=== PATIENT | female | born 1995 | race Caucasian/White ===

== ENCOUNTER → 2022-01-31 13:02 | Outpatient (BNVA) | payer MEDICAID, SELFPAY | PROVIDERS: Visit Provider Nurse Practitioner | DX: H93.90 Unspecified disorder of ear, unspecified ear (principal); J10.1 Influenza due to other identified influenza virus with other respiratory manifestations | CPT/HCPCS: 87400 ==

== ENCOUNTER → 2022-05-24 10:14 | Outpatient (BNVA) | payer MEDICAID, SELFPAY | PROVIDERS: Referring Provider Family Medicine; Visit Provider Student in an Organized Health Care Education/Training Program | DX: M67.432 Ganglion, left wrist (principal) | CPT/HCPCS: 73110 ==

== ENCOUNTER 2022-05-25 05:52 | Day surgery (SDC) | payer MEDICAID, SELFPAY ==
[2022-05-24 11:48] VITALS: BMI 31.6
[2022-05-25] VITALS (9 sets, daily range): BP systolic 106–137; BP diastolic 75–95; PULSE 68–100; RESP 16–20; TEMP 36.1–36.6; O2SAT 95–100
[2022-05-25] MEDS: sodium chloride 0.9% 1,000 ML 30 ML IV (06:27)
[2022-05-25 06:34] LABS: OR HCG Qualitative Urine Negative (Negative)
--- NOTE | 2022-05-25 06:38 | W.PM.OPSUD ---
Surgery/Procedure H&P Update DATE OF PROCEDURE: May 25, 2022 DATE H&P PERFORMED: 05/14/22 PRIMARY INDICATION FOR PROCEDURE: Chronic eustachian tube dysfunction PLANNED PROCEDURE: Operation Date: 05/25/22 07:00 Proposed Procedures p Myringotomy and Tubes Bilateral Myringotomy and Tubes 03313,77529,H69.83,H73.899,H90.2,H90.8,H92.03(Bilateral) - Guero Hutchins MD s Eustachian Tube Dilation(Bilateral) - Guero Hutchins MD
--- NOTE | 2022-05-25 06:57 | ANES.PREANE2 ---
Pre-Anesthetic Assessment Height/Weight: Height 1.7 m Weight 91.626 kg Temp Pulse Resp BP Pulse Ox O2 Del Method 97.8 F 100 16 117/75 97 05/25/22 06:19 05/25/22 06:19 05/25/22 06:19 05/25/22 06:19 05/25/22 06:19 05/25/22 06:19 Operation Date: 05/25/22 07:00 Proposed Procedures p Myringotomy and Tubes Bilateral Myringotomy and Tubes 19082,98140,H69.83,H73.899,H90.2,H90.8,H92.03(Bilateral) - Guero Hutchins MD s Eustachian Tube Dilation(Bilateral) - Guero Hutchins MD Was Beta Janett taken within 24 hours: N/A Was Clonidine taken within 24 hours: N/A Last intake: Intake Last Liquid Date 05/24/22 Last Liquid Time 22:00 Last Solid Date 05/24/22 Last Solid Time 18:30 Social No alcohol and No tobacco Exam alert, oriented x 3, clear to auscultation bilaterally and regular rate & rhythm Airway Submandibular: within normal limits Cervical ROM: within normal limits Mallampati: Class II Dentition: full History/ROS No significant history except as noted and No significant complaints Pulmonary None reported CV/HEM None reported None reported Hepatic None reported GI None reported Metabolic None reported Musc/skel None reported Neuropsych None reported Anesthetic Plan ASA status: 1 Anesthesia: General Risk of > 500 ml blood loss (7ml/kg in children): No Medications/Allergies Home Medications Medication Instructions Recorded Confirmed Last Taken Type cetirizine 10 mg tablet (Zyrtec) 10 mg PO DAILY PRN Allergy Symptoms 11/25/21 05/24/22 05/21/22 History levonorgestrel 20 mcg/24 hours (8 20 mcg intrauterine .Q7YRS 11/25/21 05/25/22 Unknown History yrs) 52 mg intrauterine device (Mirena) fluticasone propionate 50 1 spray intranasal BID 01/31/22 05/24/22 05/21/22 History mcg/actuation nasal spray,suspension (Flonase Allergy Relief) hydrocodone 5 mg-acetaminophen 325 1 tab PO Q6H PRN pain #25 tabs 05/25/22 Unknown Rx mg tablet Allergies Allergy/AdvReac Type Severity Reaction Status Date / Time No Known Allergies Allergy Verified 05/24/22 11:46 Current Medications Generic Name Dose Route Start Last Admin Trade Name Sarah PRN Reason Stop Dose Admin Sodium Chloride 1,000 mls @ 30 mls/hr 05/25/22 06:15 05/25/22 06:27 Sodium Chloride 0.9% IV 05/26/22 06:14 30 mls/hr .Q24H KELSY Administration PFSH Anesthesia Medical History No pertinent past medical history Surgical History History of knee surgery History of placement of ear tubes Family History Grandmother Breast cancer MATERNAL Colon cancer MATERNAL Ovarian cancer MATERNAL Grandfather Diabetes PATERNAL Denies family history of Heart disease Hypercholesteremia Hypertension Uterine cancer Thyroid disease Stroke Social History Smoking and tobacco status: never smoked Female Reproductive History Date of last menstrual period: 05/22/22 Data Anesthesia Cardiac Studies: No Data to Display
[2022-05-25] MEDS: lidocaine-epi 1% 20 mL INJ INJECTION (07:16)
[2022-05-25] MEDS: lidocaine 4% PF 5 mL INJ XX (07:42)
[2022-05-25] MEDS: EPINEPHrine 1 mg/mL INJ XX (07:50)
[2022-05-25] MEDS: oxymetazoline 0.05% Nasal Spray 15 mL 30 SPRAY NOSTRIL-B (07:59)
[2022-05-25] MEDS: oxymetazoline 0.05% Nasal Spray 15 mL 15 SPRAY NOSTRIL-B (08:05)
--- NOTE | 2022-05-25 08:35 | PM.OP ---
Operative Report Date of procedure: May 25, 2022 Pre-op diagnosis: Chronic eustachian tube dysfunction Post-op diagnosis: same Post-op findings: Thickened, sclerotic tympanic membranes, left > right Tympanostomy tube retained in the left middle ear and adhesed to the medial tympanic membrane Left nasal septal deviation with a spur Normal nasopharynx Procedure done: Bilateral myringotomy with tympanostomy tube placement Removal of retained middle ear tympanostomy tube, left ear Bilateral eustachian tube balloon dilation Implants: Bilateral tympanostomy tubes Specimens removed/disposition: Retained left middle ear tympanostomy tube Surgeon: Guero Hutchins Assistant Professor Of Mathematics: Yumiko Barber Anesthesia: General Estimated blood loss (mL): 2 IV fluids (mL): 800 Complications: None Condition: stable Disposition: same day Brief History: 27 yo wf with a h/o chronic eustachian tube dysfunction who desires surgical therapy. Procedure: The patient was identified in the preop holding area and was taken to the operating room where she was placed on the operating table in supine position. Anesthesia was obtained with general anesthesia and the patient's head was turned to the left exposing the right ear to the operating surgeon. An aural speculum was placed in the patient's right external auditory canal and the ear was inspected with the microscope and a 300 mm lens. A radial incision was made in the anterior-inferior quadrant the patient's right tympanic membrane with a myringotomy knife and a tympanostomy was placed in the myringotomy with a pair of alligator forceps. Once the tympanostomy tube was in the proper position, the right ear was filled with Ciprodex otic suspension followed by cotton ball. Attention was turned to the left ear where a similar procedure was performed. However, there was a retained tympanostomy tube in the middle ear in the anterior-inferior quadrant of the middle ear that was adhesed to the medial aspect of the tympanic membrane. A myringotomy was made in this area and the tympanostomy tube was gently moved with alligator forceps and a Alanis needle after lysing the adhesions in the middle ear. At this point a tympanostomy tube was placed in the patient's left tympanic membrane and the left ear was filled with Ciprodex otic suspension. At this point the date nose was sprayed with Afrin and left Afrin and lidocaine soaked pledgets were placed in the nose. The patient was then reprepped and draped in the usual sterile fashion. The pledgets were removed and the nose was inspected with a 0 degree Olvera brooklynn surgical telescope with the attached video camera system. The Acclarent balloon was then guided into the right eustachian tube through the nose and was inflated to 12 gena for 2 minutes. Once 2 minutes had passed the balloon was deflated and removed from the eustachian tube on the right. Attention was then turned to the left nasal cavity where a similar procedure was performed on the left eustachian tube. At this point the procedure was terminated and control of the patient was returned to anesthesia where she underwent an uneventful reversal of anesthesia and was taken to recovery in stable condition. There were no operative or anesthetic complications
[2022-05-25] MEDS: fentaNYL 50 mcg/mL INJ 2mL IVP (08:40)
[2022-05-25] MEDS: ondansetron 2 mg/ML SDV 2 mL 4 MG IVP (09:10)
[2022-05-25] MEDS: diphenhydrAMINE 50 mg/mL SDV 1mL 12.5 MG IVP (09:31)
[2022-05-25] MEDS: scopolamine 1.5 Patch 1 PATCH TRANSDERMA (09:37)
[2022-05-25] MEDS: midazolam 1 mg/mL INJ 2 mL 0.5 MG IVP (09:53)
--- NOTE | 2022-05-25 10:04 | PC.NURSE ---
Pt with post op nausea and vomiting. IVP Zofran 4 mg given with vomiting. Bloody emesis noted. Reported to Dr Zapata and Dr Hutchins. No new orders from Dr Hutchins. Received verbal orders from Dr Zapata for scop patch, IVP Benadryl 12.5 mg. Continued vomiting with mucous and blood. New order of IVP Versed 0.5 mg received. Patient resting at this time. Voices feeling some better. Able to tolerate small sips. Mother at bedside. Pt and family verbalized understanding plan of care. Denies needs at this time.
--- NOTE | 2022-05-25 10:25 | PC.NURSE ---
Pt voices feeling better with pain and N/V. Dr Zapata reassessed her. Okay'ed patient to head home if she is ready. Pt stated wanted to go home. Tolerated getting dressed well. Released with family with all personal belongings. Denies needs at this time.
--- NOTE | 2022-05-25 14:02 | ANE.PACU2 ---
Inpatient post-anesthesia follow up: Airway intact: Yes Vital signs: Temperature 97.0 F Pulse Rate 82 Respiratory Rate 16 Blood Pressure 115/81 Pulse Oximetry 100 Oxygen Delivery Me thod Room Air Oxygen Flow Rate 6 Fraction of Inspir ed Oxygen Hydration adequate: Yes Nausea and vomiting: Yes Pain level: 2 Mental status: Baseline
== END 2022-05-25 10:34 | disposition home or self-care (01) ==
PROVIDERS: Anesthesiology; PCP Family Medicine; Visit Provider Specialist
PROC: (CPT 69420; principal; 2022-05-25 07:00)
PROC: (CPT 69421; 2022-05-25 07:00)
DX: H69.83 Other specified disorders of Eustachian tube, bilateral (principal); J34.2 Deviated nasal septum; H74.8X3 Other specified disorders of middle ear and mastoid, bilateral; J34.89 Other specified disorders of nose and nasal sinuses
CPT/HCPCS: 69421; 69436; 12345; 81025; 84703; C9745; J0131; J0171; J1100; J1200; J2250; J2405; J2704; J3010; J7030

== ENCOUNTER 2022-06-08 10:36 | Day surgery (SDC) | payer MEDICAID, SELFPAY ==
[2022-06-07 12:07] VITALS: BMI 31.6
[2022-06-08] VITALS (7 sets, daily range): BP systolic 95–115; BP diastolic 55–72; PULSE 85–95; RESP 12–17; TEMP 36.1–36.9; O2SAT 98–100
[2022-06-08 11:06] LABS: OR HCG Qualitative Urine Negative (Negative)
--- NOTE | 2022-06-08 11:20 | W.PM.OPSUD ---
Surgery/Procedure H&P Update DATE OF PROCEDURE: June 08, 2022 DATE H&P PERFORMED: 05/24/22 CHANGES TO PREVIOUS DOCUMENTATION: None PREOP DIAGNOSIS: Left wrist ganglion cyst PRIMARY INDICATION FOR PROCEDURE: Left dorsal wrist ganglion cyst PLANNED PROCEDURE: Operation Date: 06/08/22 12:35 Proposed Procedures p left wrist mass excision:[id number], M67.432(Left) - Giovanni Rogers DO
[2022-06-08] MEDS: acetaminophen 1,000 MG/100 ML PIGGYBACK 400 MG IV (11:24)
[2022-06-08] MEDS: scopolamine 1.5 Patch 1 PATCH TRANSDERMA (11:25)
[2022-06-08] MEDS: sodium chloride 0.9% 1,000 ML 30 ML IV (11:25)
[2022-06-08] MEDS: ketorolac 30 mg/mL INJ IVP (11:26)
--- NOTE | 2022-06-08 11:30 | ANES.PREANE2 ---
Pre-Anesthetic Assessment Height/Weight: Height 1.7 m Weight 91.626 kg Temp Pulse Resp BP Pulse Ox O2 Del Method 98.4 F 92 16 113/72 99 06/08/22 11:07 06/08/22 11:07 06/08/22 11:07 06/08/22 11:07 06/08/22 11:07 06/08/22 11:07 Preop Diagnosis: Left wrist ganglion cyst Operation Date: 06/08/22 12:35 Proposed Procedures p left wrist mass excision:[id number], M67.432(Left) - Giovanni Sue, DO Familial anesthetic complications: N/V Was Beta Janett taken within 24 hours: N/A Was Clonidine taken within 24 hours: N/A Last intake: Intake Last Liquid Date 06/07/22 Last Liquid Time 22:30 Last Solid Date 06/07/22 Last Solid Time 20:30 Social No alcohol and No tobacco Exam alert, oriented x 3, clear to auscultation bilaterally and regular rate & rhythm Airway Submandibular: within normal limits Cervical ROM: within normal limits Mallampati: Class III Dentition: chipped Comments: Comments: Missing History/ROS No significant history except as noted and No significant complaints Pulmonary None reported CV/HEM None reported None reported Hepatic None reported GI None reported Metabolic None reported Musc/skel Lower Back Pain Neuropsych None reported Anesthetic Plan ASA status: 1 Anesthesia: Anesthesia Evaluation, General and MAC Risk of > 500 ml blood loss (7ml/kg in children): No Medications/Allergies Home Medications Medication Instructions Recorded Confirmed Last Taken Type cetirizine 10 mg tablet (Zyrtec) 10 mg PO DAILY PRN Allergy Symptoms 11/25/21 06/08/22 06/07/22 History levonorgestrel 20 mcg/24 hours (8 20 mcg intrauterine .Q7YRS 11/25/21 06/08/22 Unknown History yrs) 52 mg intrauterine device (Mirena) fluticasone propionate 50 1 spray intranasal BID 01/31/22 06/08/22 06/07/22 History mcg/actuation nasal spray,suspension (Flonase Allergy Relief) hydrocodone 5 mg-acetaminophen 325 1 tab PO Q6H PRN pain #25 tabs 05/25/22 06/08/22 Unknown Rx mg tablet doxycycline hyclate 100 mg capsule 100 mg PO DAILY 06/07/22 06/08/2223 History Allergies Allergy/AdvReac Type Severity Reaction Status Date / Time No Known Allergies Allergy Verified 06/08/22 10:57 Current Medications Generic Name Dose Route Start Last Admin Trade Name Sarah PRN Reason Stop Dose Admin Sodium Chloride 1,000 mls @ 30 mls/hr 06/08/22 11:00 06/08/22 11:25 Sodium Chloride 0.9% IV 06/09/22 10:59 30 mls/hr .Q24H KELSY Administration PFSH Anesthesia Medical History No pertinent past medical history Surgical History History of knee surgery History of placement of ear tubes Family History Grandmother Breast cancer MATERNAL Colon cancer MATERNAL Ovarian cancer MATERNAL Grandfather Diabetes PATERNAL Denies family history of Heart disease Hypercholesteremia Hypertension Uterine cancer Thyroid disease Stroke Social History Smoking and tobacco status: never smoked Data Anesthesia Cardiac Studies: No Data to Display
[2022-06-08] MEDS: ceFAZolin 2,000 MG in sodium chloride 0.9% (plus) 50 ML 100 MG IV (11:44)
[2022-06-08] MEDS: lidocaine-epi 1% 20 mL INJ INJECTION (12:07)
[2022-06-08] MEDS: sodium bicarbonate 4.2% 0.5 mEq/mL SDV 5mL 1 MEQ XX (12:07)
--- NOTE | 2022-06-08 12:53 | PM.OP2 ---
Brief Operative Note Date of procedure: 06/08/22 Pre-op diagnosis: Left wrist dorsal ganglion cyst Post-op diagnosis: same Procedure Done: Left wrist dorsal ganglion cyst excision Surgeon: Giovanni Rogers Estimated blood loss (mL): 5 Complications: None Post-op Plan: Patient taken to PACU in stable condition recovering well. Will receive appropriate discharge instructions as well as pain medication postoperatively. Patient will follow-up with me in the office in 2 weeks. Condition: stable Disposition: same day Coding Level of Care Code Acute Code for Bev Doyle
--- NOTE | 2022-06-08 12:53 | PM.PACU ---
PACU note Narrative: Patient taken to PACU in stable condition recovering well pain controlled. Patient is able to wiggle fingers brisk capillary refill less than 2 seconds. Dressing on in place clean dry and intact. Decreased sensation to the left hand secondary to local anesthetic. Exam: awake Disposition: discharged
--- NOTE | 2022-06-08 12:53 | PM.OP ---
Operative Report Date of procedure: June 08, 2022 Pre-op diagnosis: Preop Diagnosis Left wrist ganglion cyst Procedure: ? Post-op diagnosis: Left dorsal wrist ganglion cyst Procedure done: Left dorsal wrist ganglion cyst excision Specimens removed/disposition: Left dorsal wrist ganglion cyst excised and sent for pathology Surgeon: Giovanni Rogers DO Estimated blood loss: 5 mL Tourniquet time 14 minutes IV fluids: See anesthesia record Complications: None Findings: See operative report narrative Condition: stable Disposition: same day Brief History: Patient's been worked up in the outpatient setting and findings consistent with preoperative diagnosis.? Patient has a left dorsal wrist ganglion cyst that is continued to grow in size of a severely painful and debilitating to patient's activities.? Patient is young and very active and utilizes her hands a lot.? We talked about treatment options as far as nonoperative and operative intervention.? At this point time she like a more permanent solution in the lowest chance of recurrence and as result through shared decision making we agreed to proceed with a left dorsal wrist ganglion cyst excision.? She understands risk benefits complication alternatives surgical nonsurgical treatment options.? Understanding risk of surgery she agrees to proceed.? All questions answered.? Consent obtained in the office. Procedure: Patient seen evaluate in the preoperative holding area.? Consent was signed and reviewed with patient.? All questions were answered at that time.? Correct extremity was then marked.? Once seen evaluated by anesthesia patient was then brought back to the operative suite.? Patient was then placed in supine position all bony prominences well-padded patient was properly secured to the bed.? An armboard was then applied for the left upper extremity.? A nonsterile tourniquet was applied to the left upper extremity arm.? Patient then underwent anesthesia per the anesthesia department.? Once appropriately anesthetized the left upper extremity was then prepped and draped in standard orthopedic fashion.? Final timeout performed.? Patient received appropriate preoperative antibiotics. Under sterile aseptic technique I began with local anesthetic for my preplanned surgical site.? Then I utilized an Esmarch tourniquet to exsanguinate the left upper extremity to 250 mmHg Patient had a large soft mobile ganglion cyst which a incision was then centered longitudinally directly over the cyst.? Sharp scalpel incision was made through skin and subcutaneous tissue.? I then switched to dissection scissors and spread longitudinally to identify branches of the superficial radial nerve.? These were protected throughout the case.? I immediately encountered the ganglion cyst which was just distal to the extensor retinaculum and between the third and fourth dorsal compartments.? I then protected the tendons and identified the ganglion cyst subsequently dissected circumferentially all the way to the base which was connected to the dorsal capsule.? This was then transected at the base with bipolar electrocautery and I utilized bipolar electrocautery to to seal off the dorsal capsule and prevent any further cyst recurrence.? Cyst was then sent for pathology.? I then thoroughly irrigated the wound bed tourniquet was deflated.? Hemostasis was satisfactory with bipolar electrocautery.? I then closed the incision in layered fashion with 3-0 Vicryl suture subcutaneously and running horizontal mattress nylon stitch for skin.? Xeroform over the incisions 4 x 4's ABD soft roll and a volar splint was applied.? Patient was then awakened from anesthesia and taken back in stable condition. Disposition: Patient taken back in stable condition recovering well.? Patient will receive appropriate discharge instructions as well as pain medication postoperatively.? We will follow-up with me in the office in 2 weeks.? Patient understands of any questions or concerns and contact the office.
--- NOTE | 2022-06-08 16:19 | ANE.PACU2 ---
Inpatient post-anesthesia follow up: Airway intact: Yes Vital signs: Temperature 97 F Pulse Rate 88 Respiratory Rate 16 Blood Pressure 115/70 Pulse Oximetry 100 Oxygen Delivery Me thod Room Air Oxygen Flow Rate 6 Fraction of Inspir ed Oxygen Hydration adequate: Yes Nausea and vomiting: No Pain level: 1 Mental status: Baseline
== END 2022-06-08 13:20 | disposition home or self-care (01) ==
PROVIDERS: PCP Family Medicine; Visit Provider Student in an Organized Health Care Education/Training Program
PROC: (CPT 25111; principal; 2022-06-08 12:25)
DX: M67.432 Ganglion, left wrist (principal)
CPT/HCPCS: 25111; 84703; 88304; J0131; J0690; J1100; J1885; J2250; J2405; J2704; J7030

== ENCOUNTER → 2022-11-13 18:43 | Outpatient (BNVA) | payer MEDICAID, SELFPAY | PROVIDERS: PCP Family Medicine; Visit Provider Registered Nurse Neonatal Intensive Care | DX: N89.8 Other specified noninflammatory disorders of vagina (principal) | CPT/HCPCS: 81000; 87491; 87591 ==